=== PATIENT | female | born 1980 | race Caucasian/White ===

== ENCOUNTER 2016-03-10 14:37 | Emergency (ER) | payer MEDICAID | END 2016-03-10 19:19 | disposition home or self-care (01) | LOC: ER 14:37 | DX: R20.9 Unspecified disturbances of skin sensation (principal); F41.1 Generalized anxiety disorder; N30.00 Acute cystitis without hematuria | CPT/HCPCS: 36415; 80053; 80320; 81001; 82553; 83874; 83880; 84439; 84443; 84484; 84702; 84703; 85025; 85379; 85610; 85730; 87088 ==